=== PATIENT | female | born 1975 | race Asian ===

== ENCOUNTER 2020-02-15 12:38 | Emergency (ER) | payer OTHER, BC ==
[~2020-02-15] VITALS: Ht 154.9 cm; Wt 42.6 kg
[2020-02-15 12:48] VITALS: Ht 154.9 cm; Wt 42.6 kg
[2020-02-15 15:22] VITALS: BP 108/73
== END 2020-02-15 15:22 | disposition home or self-care (01) ==
LOC: ED 12:38
DX: S52.181A Other fracture of upper end of right radius, initial encounter for closed fracture (principal); S80.01XA Contusion of right knee, initial encounter; S00.81XA Abrasion of other part of head, initial encounter; V49.40XA Driver injured in collision with unspecified motor vehicles in traffic accident, initial encounter; Y93.I9 Activity, other involving external motion; Y92.488 Other paved roadways as the place of occurrence of the external cause; Y99.8 Other external cause status